=== PATIENT | male | born 1990 | race Caucasian/White ===

== ENCOUNTER 2017-06-07 23:18 | Emergency (ER) | payer SELFPAY ==
[2017-06-07 23:21] VITALS: BP 141/100; PULSE 81; RESP 16; TEMP 36.9; O2SAT 97; BMI 39.4
--- NOTE | 2017-06-07 23:27 | NURSING ---
PER [employer],IF PT IS RELEASED, THEY WILL PROVIDE TRANSPORT HOME
[2017-06-08] VITALS (11 sets, daily range): BP systolic 128–168; BP diastolic 77–85; PULSE 61–101; RESP 12–18; O2SAT 95–96
[2017-06-08 00:11] LABS: Absolute Lymphocyte Count 3.02 X10^3/ul (0.83-4.51); Absolute Neutrophil Count 2.5 X10^3/uL (2.0-7.7); Basophil# 0.01 X10^3/uL; Basophil% 0.2 % (0-1); Eosinophil# 0.05 X10^3/uL; Eosinophils% 0.8 % (0-5); Hematocrit 44.7 % (40-54); Hemoglobin 15.9 g/dl (13.0-16.5); Lymphocyte # 3.02 X10^3/ul (4.0); Lymphocyte % 50.2 % (19-41); Mean Corp Hgb Conc 35.6 g/gl (32-36); Mean Corpuscular Hgb 29.1 pg (27.0-32.0); Mean Corpuscular Volume 81.7 fL (80-94); Monocyte# 0.39 X10^3/uL; Monocyte% 6.5 % (0-10); Neutrophil # 2.54 X10^3/uL (2.7-7.7); Neutrophil % 42.1 % (47-70); Platelet Count 198 K/mm3 (150-450); RBC Distribution Width CV 12.5 % (11.6-14.6); RBC Distribution Width SD 36.8 fl (35.1-43.9); Red Blood Count 5.47 M/mm3 (4.6-6.2)
[2017-06-08 00:12] LABS: POSITIVE COUNT NO; POSITIVE DIFFERENTIAL NO; POSITIVE MORPHOLOGY NO
[2017-06-08 00:15] LABS: Alcohol, Blood (Medical)-Serum < 3.0 mg/dL
[2017-06-08 00:16] LABS: Anion Gap 13 (5-15); BUN 15 mg/dL (7-18); BUN/Creat Ratio 11.1 RATIO (10-20); Calcium,Total 8.8 mg/dL (8.5-10.1); Chloride 106 mmol/L (98-107); Creatinine, Serum 1.35 mg/dL (0.70-1.30); EST Glomerular Filtration Rate 66 mL/min (>60); Est Glom Filt Rate - Afr Amer 80 mL/min (>60); Estimated Creatinine Clearance 91.24 ml/min; Glucose 96 mg/dL (74-106); Potassium 3.8 mmol/L (3.5-5.1); Sodium Level 139 mmol/L (136-145)
[2017-06-08 00:33] LABS: Vista UDS pH Range 6
[2017-06-08 00:46] LABS: Amphetamine Urine VISTA NEGATIVE (<1000 ng/mL); Barbiturate Urine VISTA NEGATIVE (< 200 ng/mL); Benzodiazepine Urine VISTA NEGATIVE (< 200 ng/mL); Cocaine Urine VISTA NEGATIVE (< 300 ng/mL); Ecstacy Urine VISTA NEGATIVE (< 500 ng/mL); Methadone Urine VISTA NEGATIVE (< 300 ng/mL); PCP Urine VISTA NEGATIVE (< 25 ng/mL); THC Urine VISTA NEGATIVE (< 50 ng/mL)
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
--- NOTE | 2017-06-08 02:24 | EKG12_ITS ---
Test Reason : [facility] [place] Blood Pressure : / mmHG Vent. Rate : 066 BPM Atrial Rate : 066 BPM P-R Int : 188 ms QRS Dur : 098 ms QT Int : 408 ms P-R-T Axes : 047 060 061 degrees QTc Int : 427 ms Normal sinus rhythm Normal ECG Confirmed by MARLINE DENTON, YAHIR ([id number]), staff editor ADELFO WRIGHT ([id number]) on 06/11/2017 1:19:00 PM Referred By: KAMLESH Confirmed By:YAHIR HORAN MD
[2017-06-08 02:44] LABS: AST(SGOT) 48 U/L (15-37); Alanine Aminotransfer ALT/SGPT 113 U/L (16-61); Albumin, Serum 4.4 g/dL (3.2-5.0); Alkaline Phosphatase 53 U/L (45-117); Globulin 4.4 g/dL (2.2-4.2); Protein, Total 8.8 g/dL (6.4-8.2)
--- NOTE | 2017-06-08 06:41 | ED.RN ---
spoke to Veronica with crisis. More information faxed to [facility] for acceptance. Patient updated on plan of care at this time
--- NOTE | 2017-06-08 08:53 | NURSING ---
CALLED [facility]. THEY ARE ENROUTE
--- NOTE | 2017-06-08 09:02 | NURSING ---
CALLED [facility]. ETA 20 MIN
== END 2017-06-08 09:54 ==
LOC: ED 06-08 00:30
PROVIDERS: Emergency Provider Emergency Medicine
DX: R45.851 Suicidal ideations (principal)
CPT/HCPCS: 80048; 80076; 80307; 80320; 85025; 93005; 99284; G0480